=== PATIENT | female | born 1995 | race African-American/Black ===

== ENCOUNTER 2022-02-19 10:56 | Emergency (ER) | payer MEDICAID ==
[~2022-02-19] VITALS: Ht 160 cm; Wt 59.0 kg
[2022-02-19 11:50] LABS: BASOPHILS % 0.4 % (0.0-2.0); EOSINOPHILS % 0.5 % (0.0-5.0); HEMATOCRIT. 36.7 % (36.0-48.0); LYMPHOCYTES % 13.6 % (20.0-50.0); MEAN CORPUSCULAR HEMOGLOBIN 27.5 pg (28.0-32.0); MEAN CORPUSCULAR VOLUME 84.1 fL (81.0-99.0); MEAN PLATELET VOLUME 8.8 fl (7.4-10.4); MONOCYTES % 5.1 % (2.0-8.0); NEUTROPHILS % 80.4 % (40.0-76.0); PLATELET 226 x1000/uL (130-400); RED BLOOD CELL COUNT 4.36 mill/uL (4.2-5.4); RED CELL DISTRIBUTION WIDTH 14.4 % (11.6-14.6)
[2022-02-19 11:59] LABS: CHLORIDE 107 mEq/L (98-107)
[2022-02-19 12:08] LABS: CLARITY URINE TURBID (CLEAR); COLOR URINE RED (YELLOW); KETONES URINE NEGATIVE (NEGATIVE); LEUKOCYTE ESTERASE URINE 2+ (NEGATIVE); NITRITE URINE POSITIVE (NEGATIVE); OCCULT BLOOD URINE 3+ (NEGATIVE); PH URINE 6.5 (4.5-8.0); PROTEIN URINE 2+ (NEGATIVE); SPECIFIC GRAVITY URINE 1.015 (1.005-1.030); UROBILINOGEN URINE 0.2 E.U./dL (0.2-1.0)
[2022-02-19 12:20] LABS: B-HCG QUANTITATIVE 3572 mIU/mL (<3)
[2022-02-19 12:21] LABS: PROTHROMBIN TIME 10.9 sec (9.6-11.0)
[2022-02-19] MEDS ORDERED: ACETAMINOPHEN 325MG TABLET PO ONE (14:15)
[2022-02-19 15:22] VITALS: BP 96/46
== END 2022-02-19 15:35 | disposition home or self-care (01) ==
LOC: ER 11:11
DX: O02.1 Missed abortion (principal)
CPT/HCPCS: 36415; 76801; 80053; 81003; 81025; 84702; 85025; 86850; 86900; 99284

== ENCOUNTER 2022-02-22 11:46 | Emergency (ER) | payer MEDICAID ==
[~2022-02-22] VITALS: Ht 162.6 cm; Wt 51.0 kg
[2022-02-22 12:00] VITALS: BP 97/42
== END 2022-02-22 14:03 | disposition left against medical advice (07) ==
LOC: ER 11:57
DX: R68.89 Other general symptoms and signs (principal)
CPT/HCPCS: 99281

== ENCOUNTER 2022-02-23 09:32 | Emergency (ER) | payer MEDICAID ==
[~2022-02-23] VITALS: Ht 162.6 cm; Wt 51.0 kg
[2022-02-23 09:36] VITALS: BP 110/63
== END 2022-02-23 11:07 | disposition home or self-care (01) ==
LOC: ER 09:54
DX: O02.1 Missed abortion (principal)
CPT/HCPCS: 81025; 99282